=== PATIENT | male | born 1965 | race Caucasian/White ===

== ENCOUNTER 2023-02-09 14:11 | Inpatient (IN) | payer OTHER ==
[~2023-02-09] VITALS: Ht 167.6 cm; Wt 88.0 kg
== END 2023-02-12 13:07 | disposition home or self-care (01) | DRG 603 ==
LOC: ER 14:11 → MEDJ 22:17 → SEC-K 22:17 → MEDJ 02-10 00:24
PROVIDERS: ADMIT Specialist; ATTEND Specialist
PROC: BW28ZZZ Computerized Tomography (CT Scan) of Head (ICD-10-PCS; principal; 2023-02-09)
DX: L03.211 Cellulitis of face (principal); B95.61 Methicillin susceptible Staphylococcus aureus infection as the cause of diseases classified elsewhere

== ENCOUNTER 2023-10-07 14:22 | Inpatient (IN) | payer OTHER ==
[~2023-10-07] VITALS: Ht 66 cm; Wt 89.8 kg
[2023-10-07 16:51] LABS: HEMATOCRIT 40.3 % (39.0-48.0); MEAN CELL VOLUME 86.5 fL (80.0-100.00); MEAN CORPUSCULAR HGB CONC 34.7 g/dl (32.0-36.0); PLATELET COUNT 138 K/uL (150-450); RED BLOOD COUNT 4.66 M/uL (4.00-6.00); RED CELL DISTRIBUTION WIDTH 12.7 % (11.5-14.5)
[2023-10-07 17:23] LABS: ALBUMIN 4.3 gm/dL (3.4-5.0); BILIRUBIN TOTAL 2.32 mg/dL (0.3-1.2); CALCIUM 9.5 mg/dL (8.5-10.1); CREATININE SERUM 0.91 mg/dL (0.70-1.30); GFR 86.18; GLOBULINA 3.8 G/DL (2.4-3.5); POTASSIUM 3.72 mEq/L (3.5-5.1); TOTAL PROTEIN 8.1 gm/dL (6.4-8.2)
[2023-10-08 10:18] LABS: INR 1.05; PARTIAL THROMBOPLASTIN TIME 27.9 SECONDS (22.0-34.0)
[2023-10-09 07:12] LABS: ALBUMIN 3.3 gm/dL (3.4-5.0); BILIRUBIN TOTAL 0.95 mg/dL (0.3-1.2); BILIRUBIN,CONJUGATED 0.31 mg/dL (0.0-0.2); BILIRUBIN,UNCONJUGATED 0.64 mg/dL (0.0-0.6); CALCIUM 8.6 mg/dL (8.5-10.1); CHOL HDL RATIO 4.4 (0-5.0); CREATININE SERUM 0.97 mg/dL (0.70-1.30); GFR 80.06; GLOBULINA 2.6 G/DL (2.4-3.5); POTASSIUM 3.91 mEq/L (3.5-5.1); TOTAL PROTEIN 5.9 gm/dL (6.4-8.2)
[2023-10-09 07:21] LABS: HEMOGLOBIN 12.7 g/dL (13-16.00); MEAN CELL VOLUME 87.1 fL (80.0-100.00); MEAN CORPUSCULAR HEMOGLOBIN 30.6 pg (27.00-32.0); MEAN CORPUSCULAR HGB CONC 35.1 g/dl (32.0-36.0); RED BLOOD COUNT 4.14 M/uL (4.00-6.00); RED CELL DISTRIBUTION WIDTH 12.5 % (11.5-14.5)
[2023-10-09 07:23] LABS: PLATELET COUNT 127 K/uL (150-450)
[2023-10-09 07:47] LABS: C-REACTIVE PROTEIN 0.65 MG/DL (0.00-0.29)
[2023-10-09 08:05] LABS: ERYTHROCYTE SEDIMENTATION RATE 1 mm/hr
[2023-10-09 08:14] LABS: INR 1.06; PARTIAL THROMBOPLASTIN TIME 27.3 SECONDS (22.0-34.0); PROTHROMBIN TIME 11.1 SECONDS (9.0-11.5)
[2023-10-09 09:35] LABS: PH,URINE 5.5 (5.0-8.0); URINE APPEARANCE Clear; URINE BILIRRUBIN Negative (NEGATIVE); URINE BLOOD Negative; URINE COLOR Yellow; URINE GLUCOSE Negative (NEGATIVE); URINE LEUKOCYTE Negative; URINE NITRATE Negative; URINE PROTEIN Negative (NEGATIVE)
[2023-10-09 09:39] LABS: URINE EPITHELIAL CELLS 2.4 uL (0.0-38.8); URINE RBC 5.3 uL (0.0-20.8)
[2023-10-09 10:22] LABS: URINE BACTERIA 3.7 uL (0.0-1933)
== END 2023-10-11 14:08 | disposition home or self-care (01) | DRG 440 ==
LOC: ER 14:22 → MEDI 10-08 16:10
PROVIDERS: General Practice; ADMIT Specialist; ATTEND Specialist
PROC: BT4JZZZ Ultrasonography of Kidneys and Bladder (ICD-10-PCS; 2023-10-07)
PROC: BF37ZZZ Magnetic Resonance Imaging (MRI) of Pancreas (ICD-10-PCS; principal; 2023-10-08)
DX: K85.10 Biliary acute pancreatitis without necrosis or infection (principal); K80.20 Calculus of gallbladder without cholecystitis without obstruction; K80.50 Calculus of bile duct without cholangitis or cholecystitis without obstruction

== ENCOUNTER 2024-08-20 10:02 | Emergency (ER) | payer OTHER ==
[~2024-08-20] VITALS: Ht 188 cm; Wt 83.0 kg
[2024-08-20 11:43] LABS: HEMATOCRIT 42.8 % (39.0-48.0); MEAN CELL VOLUME 87.5 fL (80.0-100.00); MEAN CORPUSCULAR HEMOGLOBIN 30.6 pg (27.00-32.0); PLATELET COUNT 151 K/uL (150-450); RED BLOOD COUNT 4.89 M/uL (4.00-6.00); RED CELL DISTRIBUTION WIDTH 12.8 % (11.5-14.5)
[2024-08-20 12:42] LABS: ALBUMIN 4.3 gm/dL (3.4-5.0); BILIRUBIN TOTAL 1.06 mg/dL (0.3-1.2); BILIRUBIN,CONJUGATED 0.22 mg/dL (0.0-0.2); BILIRUBIN,UNCONJUGATED 0.84 mg/dL (0.0-0.6); CALCIUM 9.3 mg/dL (8.5-10.1); CREATININE SERUM 0.92 mg/dL (0.70-1.30); GFR 84.8; GLOBULINA 3.8 G/DL (2.4-3.5); POTASSIUM 3.94 mEq/L (3.5-5.1); TOTAL PROTEIN 8.1 gm/dL (6.4-8.2)
[2024-08-20 12:58] LABS: PH,URINE 5.5 (5.0-8.0); URINE APPEARANCE Clear; URINE BILIRRUBIN Negative (NEGATIVE); URINE BLOOD Negative; URINE COLOR Dark Yellow; URINE GLUCOSE Negative (NEGATIVE); URINE LEUKOCYTE Trace; URINE NITRATE Negative; URINE PROTEIN Trace (NEGATIVE)
[2024-08-20 12:59] LABS: URINE BACTERIA 31.4 uL (0.0-1933); URINE EPITHELIAL CELLS 5.2 uL (0.0-38.8); URINE RBC 25.3 uL (0.0-20.8); URINE WBC 6.1 uL (0.0-23.2)
[2024-08-20 13:01] LABS: URINE CAST 0.15 uL (0.0-1.40); URINE KETONE 40 (NEGATIVE)
== END 2024-08-20 15:24 | disposition home or self-care (01) ==
LOC: ER 10:04
PROVIDERS: General Practice
DX: K80.10 Calculus of gallbladder with chronic cholecystitis without obstruction (principal)

== ENCOUNTER 2024-08-21 13:16 | Inpatient (IN) | payer OTHER ==
[~2024-08-21] VITALS: Ht 188 cm; Wt 83.9 kg
--- NOTE | 2024-08-21 14:04 | NUR ---
PTE ALERTA Y ORIENTADO X3 ES ENVIADO A CECILE DE ENMERGENCIA POR LA DR. DANIELLE PARA SER EVALUADO PARA CIRUJIA. SE MIDEN S/V Y SE UBICA.
[2024-08-21] MEDS ORDERED: 0.9 % SODIUM CHLORIDE 500 ML IV ONE (15:30)
--- NOTE | 2024-08-21 15:55 | NUR ---
PTE EVALUADO POR MD ARTIS ORDENA TX MED A PTE. SE EDUCA A PTE SOBRE EL MISMO Y PTE REFIER EENTENDER. SE LLEVA ACABO ORDENES BAJO MEDIDAS ACEPTICAS ,PTE PEND A RESULTADOS DE LABS.
[2024-08-21 16:13] LABS: HEMATOCRIT 39.6 % (39.0-48.0); HEMOGLOBIN 13.9 g/dL (13-16.00); MEAN CELL VOLUME 87.3 fL (80.0-100.00); MEAN CORPUSCULAR HEMOGLOBIN 30.7 pg (27.00-32.0); MEAN CORPUSCULAR HGB CONC 35.1 g/dl (32.0-36.0); PLATELET COUNT 153 K/uL (150-450); RED BLOOD COUNT 4.54 M/uL (4.00-6.00); RED CELL DISTRIBUTION WIDTH 12.5 % (11.5-14.5)
[2024-08-21 16:33] LABS: PARTIAL THROMBOPLASTIN TIME 29.4 SECONDS (22.0-34.0); PROTHROMBIN TIME 10.9 SECONDS (9.0-11.5)
[2024-08-21 16:38] LABS: BILIRUBIN TOTAL 0.59 mg/dL (0.3-1.2); BILIRUBIN,CONJUGATED 0.14 mg/dL (0.0-0.2); BILIRUBIN,UNCONJUGATED 0.45 mg/dL (0.0-0.6); CREATININE SERUM 0.87 mg/dL (0.70-1.30); GFR 90.44; GLOBULINA 3.8 G/DL (2.4-3.5); POTASSIUM 4.25 mEq/L (3.5-5.1); TOTAL PROTEIN 7.8 gm/dL (6.4-8.2)
[2024-08-21 17:15] LABS: URINE APPEARANCE Clear; URINE BILIRRUBIN Negative (NEGATIVE); URINE BLOOD Negative; URINE COLOR Yellow; URINE GLUCOSE Negative (NEGATIVE); URINE KETONE Trace (NEGATIVE); URINE LEUKOCYTE Negative; URINE NITRATE Negative; URINE PROTEIN Negative (NEGATIVE)
[2024-08-21 17:18] LABS: URINE RBC 4.7 uL (0.0-20.8)
[2024-08-21 17:28] LABS: URINE BACTERIA 0 uL (0.0-1933); URINE WBC 0.9 uL (0.0-23.2)
[2024-08-21] MEDS ORDERED: PIPERACILLIN/TAZOBACTAM SODIUM 3.375 GM VIAL IV SCH (19:10)
[2024-08-21] MEDS ORDERED: 0.9 % SODIUM CHLORIDE 1,000 ML IV SCH (19:15)
[2024-08-21] MEDS ORDERED: KETOROLAC TROMETHAMINE 15 MG VIAL IU ONE (19:30)
[2024-08-21] MEDS ORDERED: MEPERIDINE HCL/PF 25 MG/ML VIAL IM ONE (19:30)
[2024-08-21] MEDS ORDERED: ACETAMINOPHEN 500 MG GEL..CAP PO PRN (19:30)
[2024-08-21] MEDS ORDERED: PROMETHAZINE HCL 25 MG/ML AMPUL IM ONE (19:30)
[2024-08-21] MEDS ORDERED: ONDANSETRON HCL 4 MG in 0.9 % SODIUM CHLORIDE 50 ML IV PRN (19:30)
[2024-08-21 20:08] VITALS: BP 120/76; O2SAT 100
[2024-08-21 20:41] VITALS: BP 120/76
[2024-08-21] MEDS ORDERED: MEPERIDINE HCL/PF 25 MG/ML VIAL IM SCH (21:00)
[2024-08-21 22:27] VITALS: BP 120/78; O2SAT 97
[2024-08-21 23:00] VITALS: BP 137/70; O2SAT 99
[2024-08-22 08:00] VITALS: BP 141/73; O2SAT 98
[2024-08-22] MEDS ORDERED: FAMOTIDINE/PF 20 MG in 0.9 % SODIUM CHLORIDE 8 ML IV PUSH SCH (09:00)
[2024-08-22] MEDS ORDERED: CEFAZOLIN SODIUM 1,000 MG VIAL IV SCH (13:15)
[2024-08-22] MEDS ORDERED: CEFAZOLIN SODIUM 1,000 MG VIAL IV ONE (14:45)
[2024-08-22] MEDS ORDERED: LIDOCAINE HCL 1% 20 ML VIAL IJ ONE (14:45)
[2024-08-22] MEDS ORDERED: BUPIVACAINE HCL 30 ML VIAL IJ ONE (14:45)
[2024-08-22] MEDS ORDERED: LIDOCAINE HCL 1%/EPINEPHRINE 20ML VIAL IJ ONE (14:45)
[2024-08-22] MEDS ORDERED: SUGAMMADEX SODIUM 200 MG/2 ML VIAL IV ONE (16:45)
[2024-08-22] MEDS ORDERED: MORPHINE SULFATE 4 MG/ML VIAL IV ONE ×2 (17:20→17:50)
[2024-08-23] VITALS: BP 127/74; O2SAT 98
[2024-08-23] MEDS ORDERED: GABAPENTIN 300 MG CAPSULE PO SCH (01:00)
[2024-08-23 08:29] VITALS: BP 121/72; O2SAT 98
[2024-08-23 14:23] LABS: HEMATOCRIT 37.6 % (39.0-48.0); HEMOGLOBIN 13.1 g/dL (13-16.00); MEAN CELL VOLUME 86.9 fL (80.0-100.00); MEAN CORPUSCULAR HEMOGLOBIN 30.3 pg (27.00-32.0); MEAN CORPUSCULAR HGB CONC 34.8 g/dl (32.0-36.0); PLATELET COUNT 141 K/uL (150-450); RED BLOOD COUNT 4.32 M/uL (4.00-6.00); RED CELL DISTRIBUTION WIDTH 12.7 % (11.5-14.5)
== END 2024-08-23 15:28 | disposition home or self-care (01) | DRG 419 ==
LOC: ER 13:16 → SURH 19:46
PROVIDERS: Nurse Practitioner Family; Student in an Organized Health Care Education/Training Program; ADMIT Internal Medicine; ATTEND Internal Medicine
PROC: BW40ZZZ Ultrasonography of Abdomen (ICD-10-PCS; 2024-08-21)
PROC: BF13YZZ Fluoroscopy of Gallbladder and Bile Ducts using Other Contrast (ICD-10-PCS; 2024-08-22)
PROC: 0FT44ZZ Resection of Gallbladder, Percutaneous Endoscopic Approach (ICD-10-PCS; principal; 2024-08-22 15:30)
DX: K80.00 Calculus of gallbladder with acute cholecystitis without obstruction (principal)

== ENCOUNTER 2025-03-04 14:16 | Emergency (ER) | payer OTHER ==
[~2025-03-04] VITALS: Ht 188 cm; Wt 86.2 kg
[2025-03-04] MEDS ORDERED: LACTOBACILLUS ACIDOPHILUS 1 CAP CAP PO ONE ×2 (16:19→16:30)
[2025-03-04] MEDS ORDERED: ONDANSETRON HCL 2 MG/ML VIAL ONE (16:19)
[2025-03-04] MEDS ORDERED: FAMOTIDINE/PF 20 MG/2 ML VIAL ONE (16:19)
[2025-03-04] MEDS ORDERED: ONDANSETRON HCL 2 MG/ML VIAL IV ONE (16:30)
[2025-03-04] MEDS ORDERED: 0.9 % SODIUM CHLORIDE 1,000 ML IV ONE (16:30)
[2025-03-04] MEDS ORDERED: FAMOTIDINE/PF 20 MG/2 ML VIAL IV ONE (16:30)
[2025-03-04 16:55] LABS: BASO % 0.5 % (0.1-1.2); EOS # 0.08 (0.04-0.54); EOS % 1.4 % (0.7-7.0); HEMATOCRIT 40.4 % (40.1-51.0); HEMOGLOBIN 14.2 g/dL (13.7-17.5); LYMPH # 1.34 (1.18-3.74); LYMPH % 22.9 % (19.3-53.1); MEAN CORPUSCULAR HEMOGLOBIN 30.2 pg (25.6-32.2); MONO # 0.88 (0.24-0.82); NEUT # 3.49 (1.56-6.13); NEUT % 59.8 % (34.0-71.1); PLATELET COUNT 173 K/uL (163-369); RED CELL DISTRIBUTION WIDTH 11.6 % (11.6-14.4)
[2025-03-04 16:57] LABS: MONO % 15.1 % (4.7-12.5)
[2025-03-04 17:23] LABS: BILIRUBIN TOTAL 0.92 mg/dL (0.3-1.2); CALCIUM 8.7 mg/dL (8.5-10.1); CREATININE SERUM 0.9 mg/dL (0.70-1.30); GFR 86.98; GLOBULINA 3.8 G/DL (2.4-3.5); POTASSIUM 3.6 mEq/L (3.5-5.1); TOTAL PROTEIN 7.8 gm/dL (6.4-8.2)
[2025-03-04] MEDS ORDERED: ONDANSETRON ODT8 MG PO (18:21)
[2025-03-04] MEDS ORDERED: INTESTINEX680 M1 PO (18:21)
[2025-03-04] MEDS ORDERED: PEPCID AC20 MG PO (18:21)
== END 2025-03-04 18:56 | disposition home or self-care (01) ==
LOC: ER 14:16
PROVIDERS: General Practice
DX: A08.4 Viral intestinal infection, unspecified (principal); R10.9 Unspecified abdominal pain

== ENCOUNTER → 2025-06-27 | Emergency (ER) | payer OTHER ==
[~2025-06-27] VITALS: Ht 188 cm; Wt 88.5 kg
[~2025-06-27] MED LIST: CEFTRIAXONE SODIUM 1,000 MG VIAL IM ONE; CEFTRIAXONE SODIUM 1,000 MG VIAL ONE; CIPRO500 MG PO; DEXAMETHASONE SODIUM PHOSPHATE 4 MG/ML VIAL IM ONE; DEXAMETHASONE SODIUM PHOSPHATE 4 MG/ML VIAL ONE; DIPHENHYDRAMINE HCL 50 MG/ML VIAL 1ML IM ONE; DIPHENHYDRAMINE HCL 50 MG/ML VIAL 1ML ONE; INTESTINEX680 M1 PO; ONDANSETRON ODT8 MG PO; PEPCID AC20 MG PO; ZYRTEC10 M3 PO
[2025-06-27 13:18] LABS: BASO % 0.5 % (0.1-1.2); EOS # 0.06 (0.04-0.54); EOS % 1.0 % (0.7-7.0); LYMPH # 1.58 (1.18-3.74); LYMPH % 25.6 % (19.3-53.1); MEAN PLATELET VOLUME 11.90 fl (9.4-12.4); MONO # 0.65 (0.24-0.82); MONO % 10.5 % (4.7-12.5); NEUT # 3.85 (1.56-6.13); NEUT % 62.2 % (34.0-71.1); RED CELL DISTRIBUTION WIDTH 11.9 % (11.6-14.4)
[2025-06-27 13:26] LABS: ERYTHROCYTE SEDIMENTATION RATE 4 mm/hr (0-20)
== END | disposition home or self-care (01) ==
LOC: ER 09:59
PROVIDERS: Preventive Medicine Public Health & General Preventive Medicine
DX: H60.10 Cellulitis of external ear, unspecified ear (principal)